=== PATIENT | male | born 1960 | race Caucasian/White ===

== ENCOUNTER 2023-09-03 17:14 | Observation (INO) | payer OTHER, SELFPAY ==
[2023-09-03] VITALS (36 sets, daily range): BP systolic 125–181; BP diastolic 75–110; PULSE 73–114; RESP 12–24; TEMP 36.4–36.8; O2SAT 93–97; BMI 23.7; BMI 23.0
--- NOTE | 2023-09-03 17:29 | ECG_ITS ---
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
--- NOTE | 2023-09-03 17:29 | XR_ITS ---
The [address] [address] Patient Name: STEPHANI MONTANA MRN: [id number] date: 1960 Sex: M Assigned Patient Location: ER Current Patient Location: ED.MAIN Accession/Order Number: [id number] Exam Date: 09/03/2023 17:35 Report Date: 09/03/2023 18:22 At the request of: JACQUELIN CONSTANTINO Procedure: XR chest 1V EXAM: XR chest 1V HISTORY: chest pain COMPARISON: None. TECHNIQUE: Chest X-ray AP, 1 view FINDINGS: Support devices: None. Lungs/pleura: No consolidation, effusion, or pneumothorax. Heart and mediastinum: Normal contours. Bones: No acute abnormality identified. XR/XR chest 1V Impression: No radiographic evidence of acute cardiopulmonary process. Electronically authenticated by: CHARLEY BABROSA Date: 09/03/2023 18:22
--- NOTE | 2023-09-03 17:35 | ED_ITS ---
HPI - General Adult General Chief complaint: Chest Pain Stated complaint: Palpitations Time Seen by Provider: 09/03/23 17:23 Source: patient Mode of arrival: walk-in Limitations: no limitations History of Present Illness HPI narrative: 62-year-old male presents from home with concerns of palpitations, chest discomfort. patient states he is not experiencing pain. But has noticed some funny feelings in his chest over the past several months, patient states if he is distracted he is not aware of it, but otherwise notes a palpitations sensation and heaviness with exertion.patient states he was working at home yesterday and had to stop to take a break. He denies any nausea or radiation of symptoms into his neck or arm. States he had slight heaviness in his back. Patient states he fell asleep in his chair last night and did not come to the Emergency Room. He has a twin brother who had a heart attack five or seven years ago but otherwise does not have any known family history of heart disease. Patient states he does not drink alcohol or smoke tobacco. He appears in no distress but did take two full 324 mg aspirins at home prior to arrival. Onset (ago): day(s) Location: Reports chest Radiation: Reports non-radiation Severity: mild Quality: Reports other (heaviness/palpitation sensation like heart's beating too fast. ) Pain Consistency: Reports other (worse with exertion) Relieving factors: Reports movement Exacerbating factors: Reports rest Associated symptoms: Reports denies other symptoms Treatments prior to arrival: Reports none Related Data Home Medications Medication Instructions Recorded Confirmed No Known Home Medications 09/03/23 09/03/23 Allergies Allergy/AdvReac Type Severity Reaction Status Date / Time No Known Drug Allergies Allergy Verified 09/03/23 17:25 Review of Systems ROS Constitutional Denies: fever, chills or change in weight Eyes Denies: change in vision or blurry vision Ears, nose, mouth, and throat Denies: throat pain Cardiovascular Reports: chest pain and palpitations; Denies: edema, swelling of feet/ankles or shortness of breath when lying down Respiratory Denies: shortness of breath or cough Gastrointestinal Denies: abdominal pain, nausea or vomiting Genitourinary Denies: painful urination Musculoskeletal Denies: back pain, neck pain or extremity pain Integumentary/Breast Denies: rash Neurological Denies: headache Psychiatric Denies: anxiety Endocrine Denies: excessive urination Allergic/Immunologic Denies: hives [facility] Medical History (Updated 09/03/23 @ 20:43 by FRANKO Lazar) No active medical problems Exam Narrative Exam Narrative: Nurses notes and vital signs reviewed and patient is not hypoxic. General: The patient appears well and in no apparent distress. Patient is resting comfortably on cart. Skin: Warm, dry, no pallor noted. Head: Normocephalic, atraumatic Neck: Supple, trachea mid-line, no tenderness, no lymphadenopathy Eye: Pupils are equal, round and reactive to light, EOMI Ears, Nose, Mouth, and Throat: TM are clear, normal light reflex, oral mucosa is moist, no posterior oropharynx erythema or hypertrophy, uvula is mid-line Cardiovascular: Regular Rate and Rhythm, no prominent murmur Respiratory: Patient is in no distress, no accessory muscle use, lungs are clear to auscultation, no wheezing, rales or rhonchi. Chest Wall: no tenderness, no reproducible discomfort on palpation Back: non-tender, no CVA tenderness Musculoskeletal: normal ROM, no tenderness, no swelling GI: Normal bowel sounds, no tenderness to palpation, no masses appreciated. No rebound, guarding, or rigidity noted. Neurological: A&O x4 Psychiatric: Cooperative Constitutional Vital Signs, click to edit/add: Last Vital Signs Temp 97.5 F L 09/03/23 17:23 Pulse 76 09/03/23 20:20 Resp 17 09/03/23 20:20 BP 134/79 09/03/23 20:15 Pulse Ox 94 L 09/03/23 19:10 O2 Del Method Room Air 09/03/23 17:23 Course Vital Signs Vital signs: Vital Signs Blood Pressure 181/110 H 09/03/23 17:20 Temperature 97.5 F L 09/03/23 17:23 Pulse Rate 76 09/03/23 20:20 Respiratory Rate 17 09/03/23 20:20 Blood Pressure 134/79 09/03/23 20:15 Pulse Oximetry 94 L 09/03/23 19:10 Oxygen Delivery Method Room Air 09/03/23 17:23 Medical Decision Making MDM Narrative Medical decision making narrative: patient presents with concerns of palpitations, at times having this sensation in his chest. He denies any nausea or vomiting. He is without shortness of breath. Patient notes symptoms gave him pause yesterday while working at home. Fell asleep in his chair and presents this afternoon with concerns of symptoms not relieving. Patient took two full aspirins at home prior to arrival, he'll be given nitroglycerin here 0.4 mg given his elevated blood pressure. EKG reviewed. patient had notable improvement in his blood pressure after oral nitroglycerin. Later reassessed by nursing staff and reported no discomfort. In his chest. Patient had nitroglycerin paste applied, repeat vitals 136/82, heart rate is 80 bpms, I was notified by lab that the initial lab draw was hemolyzed and will be repeated. Given the length of his symptoms and likely need for observation and will recheck a troponin prior to admission. repeat troponin within normal limits. Patient reevaluated, asymptomatic since nitroglycerin paste applied, agreeable to stay for chest pain. We discussed indications. Patient with no further concerns, case reviewed with Hospitalist Angela STEWARD/STEWARDESS [employer]IEF [employer]GO VESSEL: will admit med surg obs Lab Data Lab results reviewed: Yes I reviewed the patient's lab results Labs: Lab Results 09/03/23 09/03/23 09/03/23 Range/Units 17:30 18:25 19:38 WBC 10.0 (4.0-11.0) 10^3/uL RBC 4.89 (4.70-6.10) 10^6/uL Hgb 15.0 (14.0-18.0) g/dL Hct 43.8 (42.0-54.0) % MCV 89.6 (80.0-94.0) fL MCH 30.7 (25.9-34.0) pg MCHC 34.2 (29.9-35.2) g/dL RDW 12.7 (11.0-15.0) % Plt Count 246 (150-450) 10^3/uL MPV 11.6 (9.5-13.5) fL Neut % (Auto) 62.5 (43.0-75.0) % Lymph % (Auto) 28.4 (20.5-60.0) % [place] % (Auto) 8.0 (1.7-12.0) % Eos % (Auto) 0.4 L (0.9-7.0) % Baso % (Auto) 0.5 (0.2-2.0) % Neut # (Auto) 6.2 (1.4-6.5) 10^3/uL Lymph # (Auto) 2.8 (1.2-3.8) 10^3/uL [place] # (Auto) 0.8 (0.3-0.8) 10^3/uL Eos # (Auto) 0.0 (0.0-0.7) 10^3/uL Baso # (Auto) 0.1 (0.0-0.1) 10^3/uL Abs Immat Gran (auto) 0.02 (0.00-0.03) 10^3/uL Imm/Tot Granulo (auto) 0.2 (0.0-0.5) % PT 10.9 (9.0-11.6) sec INR 1.03 APTT 28.3 (22.3-36.2) sec Sodium 139 (136-145) mmol/L Potassium 3.4 L (3.5-5.1) mmol/L Chloride 104 (98-107) mmol/L Carbon Dioxide 25.2 (21.0-32.0) mmol/L Anion Gap 13.2 BUN 13.0 (7.0-18.0) mg/dL Creatinine 0.95 (0.70-1.30) mg/dL Est GFR ( Amer) >60 (>=60) Est GFR (Non-Af Amer) >60 (>=60) BUN/Creatinine Ratio 13.7 Glucose 121 H (74-106) mg/dL Calcium 8.3 L (8.5-10.1) mg/dL Total Bilirubin 0.7 (0.2-1.0) mg/dL AST 12 L (15-37) U/L ALT 20 (16-63) U/L Alkaline Phosphatase 58 (46-116) U/L Troponin I High Sens 5.6 6.5 (4.0-76.1) pg/mL Total Protein 6.5 (6.4-8.2) g/dL Albumin 3.7 (3.4-5.0) g/dL Globulin 2.8 g/dL Albumin/Globulin Ratio 1.3 Lipase 20.0 (16.0-77.0) U/L TSH & Free T4 Interp 2.761 (0.358-3.740) uIU/mL Urine Color (YELLOW) Urine Clarity (CLEAR) Urine pH (5.0-9.0) Ur Specific [place] (1.005-1.025) Urine Protein (NEG/TRACE) mg/dL Urine Glucose (UA) (NEGATIVE) mg/dL Urine Ketones (NEGATIVE) mg/dL Urine Occult Blood (NEGATIVE) Urine Nitrite (NEGATIVE) Urine Bilirubin (NEGATIVE) Urine Urobilinogen (0.2-1.0) EU/dL Ur Leukocyte Esterase (NEGATIVE) 09/03/23 Range/Units 19:56 WBC (4.0-11.0) 10^3/uL RBC (4.70-6.10) 10^6/uL Hgb (14.0-18.0) g/dL Hct (42.0-54.0) % MCV (80.0-94.0) fL MCH (25.9-34.0) pg MCHC (29.9-35.2) g/dL RDW (11.0-15.0) % Plt Count (150-450) 10^3/uL MPV (9.5-13.5) fL Neut % (Auto) (43.0-75.0) % Lymph % (Auto) (20.5-60.0) % [place] % (Auto) (1.7-12.0) % Eos % (Auto) (0.9-7.0) % Baso % (Auto) (0.2-2.0) % Neut # (Auto) (1.4-6.5) 10^3/uL Lymph # (Auto) (1.2-3.8) 10^3/uL [place] # (Auto) (0.3-0.8) 10^3/uL Eos # (Auto) (0.0-0.7) 10^3/uL Baso # (Auto) (0.0-0.1) 10^3/uL Abs Immat Gran (auto) (0.00-0.03) 10^3/uL Imm/Tot Granulo (auto) (0.0-0.5) % PT (9.0-11.6) sec INR APTT (22.3-36.2) sec Sodium (136-145) mmol/L Potassium (3.5-5.1) mmol/L Chloride (98-107) mmol/L Carbon Dioxide (21.0-32.0) mmol/L Anion Gap BUN (7.0-18.0) mg/dL Creatinine (0.70-1.30) mg/dL Est GFR ( Amer) (>=60) Est GFR (Non-Af Amer) (>=60) BUN/Creatinine Ratio Glucose (74-106) mg/dL Calcium (8.5-10.1) mg/dL Total Bilirubin (0.2-1.0) mg/dL AST (15-37) U/L ALT (16-63) U/L Alkaline Phosphatase (46-116) U/L Troponin I High Sens (4.0-76.1) pg/mL Total Protein (6.4-8.2) g/dL Albumin (3.4-5.0) g/dL Globulin g/dL Albumin/Globulin Ratio Lipase (16.0-77.0) U/L TSH & Free T4 Interp (0.358-3.740) uIU/mL Urine Color Yellow (YELLOW) Urine Clarity Clear (CLEAR) Urine pH 5.5 (5.0-9.0) Ur Specific [place] >=1.030 A (1.005-1.025) Urine Protein Negative (NEG/TRACE) mg/dL Urine Glucose (UA) Negative (NEGATIVE) mg/dL Urine Ketones Trace A (NEGATIVE) mg/dL Urine Occult Blood Negative (NEGATIVE) Urine Nitrite Negative (NEGATIVE) Urine Bilirubin Negative (NEGATIVE) Urine Urobilinogen 0.2 (0.2-1.0) EU/dL Ur Leukocyte Esterase Negative (NEGATIVE) Imaging Data Chest x-ray: Attestation: I personally reviewed and interpreted this imaging study as follows: Radiologist's impression: ITS Impressions Chest X-Ray 09/03/23 17:29 Impression: No radiographic evidence of acute cardiopulmonary process. Electronically authenticated by: CHARLEY BARBOSA Date: 09/03/2023 18:22 ECG Data Attestation: I personally reviewed and interpreted this ECG as follows: Interpretation: EKG interpretation: Emergency Department physician interpretation,99 normal sinus rhythm, no ectopy, no ST segment elevation, normal axis. Discharge Plan Discharge Chief Complaint: Chest Pain Clinical Impression: Chest pain Patient Disposition: Admitted as Observation Time of Disposition Decision: :42 Condition: Good Prescriptions / Home Meds: No Action No Known Home Medications Stand Alone Forms: Portal Instructions Referrals: Physician,Non-Staff, MD [Primary Care Provider] - 1 week
[2023-09-03] MEDS: NITROGLYCERIN 0.4 MG BOTTLE PO (17:40)
[2023-09-03 18:06] LABS: Basophils Absolute Auto 0.1 10^3/uL (0.0-0.1); Basophils Percent Auto 0.5 % (0.2-2.0); Eosinophils Percent Auto 0.4 % (0.9-7.0); Hematocrit 43.8 % (42.0-54.0); Immature Granulocytes Abs Auto 0.02 10^3/uL (0.00-0.03); Immature Granulocytes Pct Auto 0.2 % (0.0-0.5); Lymphocytes Absolute Auto 2.8 10^3/uL (1.2-3.8); Lymphocytes Percent Auto 28.4 % (20.5-60.0); Mean Corpuscular HGB Conc 34.2 g/dL (29.9-35.2); Mean Corpuscular Hemoglobin 30.7 pg (25.9-34.0); Mean Corpuscular Volume 89.6 fL (80.0-94.0); Mean Platelet Volume 11.6 fL (9.5-13.5); Monocytes Absolute Auto 0.8 10^3/uL (0.3-0.8); Neutrophils Absolute Auto 6.2 10^3/uL (1.4-6.5); Neutrophils Percent Auto 62.5 % (43.0-75.0); Platelet Count 246 10^3/uL (150-450); Red Blood Count 4.89 10^6/uL (4.70-6.10); Red Cell Distribution Width 12.7 % (11.0-15.0)
[2023-09-03] MEDS: NITROGLYCERIN 0.1 MG/HR PATCH.TD24 1 EACH TD (18:37)
[2023-09-03 18:46] LABS: INR 1.03; Partial Thromboplastin Time 28.3 sec (22.3-36.2); Prothrombin Time 10.9 sec (9.0-11.6)
[2023-09-03 18:49] LABS: Alanine Aminotransferase 20 U/L (16-63); Albumin Globulin Ratio 1.3; Albumin Level 3.7 g/dL (3.4-5.0); Alkaline Phosphatase 58 U/L (46-116); Anion Gap 13.2; Aspartate Amino Transferase 12 U/L (15-37); BUN Creatinine Ratio 13.7; Bilirubin Total 0.7 mg/dL (0.2-1.0); Calcium 8.3 mg/dL (8.5-10.1); Carbon Dioxide 25.2 mmol/L (21.0-32.0); Chloride 104 mmol/L (98-107); Estimated GFR (African America >60 (>=60); Estimated GFR (Non-African Ame >60 (>=60); Globulin 2.8 g/dL; Glucose 121 mg/dL (74-106); Potassium 3.4 mmol/L (3.5-5.1); Sodium 139 mmol/L (136-145); Total Protein 6.5 g/dL (6.4-8.2)
[2023-09-03 18:54] LABS: TSH W/ REFLEX FT4 2.761 uIU/mL (0.358-3.740); Troponin I High Sensitivity 5.6 pg/mL (4.0-76.1)
[2023-09-03 20:12] LABS: Troponin I High Sensitivity 6.5 pg/mL (4.0-76.1)
[2023-09-03 20:14] LABS: Bilirubin Urine NEGATIVE (NEGATIVE); Blood Urine NEGATIVE (NEGATIVE); Clarity Urine CLEAR (CLEAR); Color Urine YELLOW (YELLOW); Glucose Urine UA NEGATIVE (NEGATIVE); Ketones Urine TRACE mg/dL (NEGATIVE); Leukocyte Esterase Urine NEGATIVE (NEGATIVE); Nitrite Urine NEGATIVE (NEGATIVE); Protein Urine NEGATIVE (NEG/TRACE); Specific Gravity Urine >=1.030 (1.005-1.025); Urobilinogen Urine 0.2 EU/dL (0.2-1.0); pH Urine 5.5 (5.0-9.0)
[2023-09-03 20:17] LABS: Urine Microscopic Indicated NO
[2023-09-04] VITALS (11 sets, daily range): BP systolic 124–152; BP diastolic 74–88; PULSE 70–92; O2SAT 95–96
[2023-09-04] MEDS: ASPIRIN 81 MG TABLET.DR PO ×2 (00:08→09:46)
[2023-09-04] MEDS: POTASSIUM CHLORIDE 10 MEQ ER TABLET 20 MEQ PO (00:08)
--- NOTE | 2023-09-04 04:00 | ECG_ITS ---
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
[2023-09-04 05:15] LABS: Basophils Absolute Auto 0.1 10^3/uL (0.0-0.1); Basophils Percent Auto 0.8 % (0.2-2.0); Eosinophils Absolute Auto 0.1 10^3/uL (0.0-0.7); Eosinophils Percent Auto 0.8 % (0.9-7.0); Hematocrit 40.8 % (42.0-54.0); Hemoglobin 13.5 g/dL (14.0-18.0); Immature Granulocytes Abs Auto 0.02 10^3/uL (0.00-0.03); Immature Granulocytes Pct Auto 0.3 % (0.0-0.5); Lymphocytes Absolute Auto 1.9 10^3/uL (1.2-3.8); Lymphocytes Percent Auto 24.2 % (20.5-60.0); Mean Corpuscular HGB Conc 33.1 g/dL (29.9-35.2); Mean Corpuscular Hemoglobin 30.2 pg (25.9-34.0); Mean Corpuscular Volume 91.3 fL (80.0-94.0); Mean Platelet Volume 10.1 fL (9.5-13.5); Monocytes Absolute Auto 0.6 10^3/uL (0.3-0.8); Monocytes Percent Auto 8.1 % (1.7-12.0); Neutrophils Absolute Auto 5.1 10^3/uL (1.4-6.5); Neutrophils Percent Auto 65.8 % (43.0-75.0); Platelet Count 243 10^3/uL (150-450); Red Blood Count 4.47 10^6/uL (4.70-6.10); Red Cell Distribution Width 12.7 % (11.0-15.0); White Blood Count 7.7 10^3/uL (4.0-11.0)
[2023-09-04 05:42] LABS: Troponin I High Sensitivity 10.2 pg/mL (4.0-76.1)
[2023-09-04 05:44] LABS: Alanine Aminotransferase 18 U/L (16-63); Albumin Globulin Ratio 1.3; Albumin Level 3.4 g/dL (3.4-5.0); Alkaline Phosphatase 54 U/L (46-116); Anion Gap 10.2; Aspartate Amino Transferase 14 U/L (15-37); BUN Creatinine Ratio 16.8; Bilirubin Total 0.4 mg/dL (0.2-1.0); Calcium 8.4 mg/dL (8.5-10.1); Carbon Dioxide 29.7 mmol/L (21.0-32.0); Chloride 106 mmol/L (98-107); Chol HDL Ratio 3.6; Cholesterol 135 mg/dL (<=200); Estimated GFR (African America >60 (>=60); Estimated GFR (Non-African Ame >60 (>=60); Globulin 2.6 g/dL; Glucose 90 mg/dL (74-106); HDL Cholesterol 38 mg/dL (40-60); Potassium 3.9 mmol/L (3.5-5.1); Sodium 142 mmol/L (136-145); Triglycerides 46 mg/dL (<=150); VLDL CHOLESTEROL 9.2 mg/dL
[2023-09-04 05:46] LABS: Magnesium 2.3 mg/dL (1.8-2.4)
[2023-09-04 05:51] LABS: Estimated Average Glucose 123 mg/dL; Glycohemoglobin A1C 5.9 % (4.5-6.2)
--- NOTE | 2023-09-04 07:53 | CA_ITS ---
Patient Name: STEPHANI MONTANA MR#: [id number] : 1960 Exam Date: 09/04/2023 Ordering Doctor: KATHY BOSS ECHOCARDIOGRAM REPORT PROCEDURE: CA ECHO DOPPLER COMPLETE INDICATIONS: Chest pain, HTN urgency COMPARISON: None. DESCRIPTION: COMPLETE ECHOCARDIOGRAM Real-time transthoracic echocardiography with 2D, M-mode, spectral and color flow Doppler performed. QUALITY: Technical quality was good. 70 , 160#, BSA 1.9 m2 LEFT VENTRICLE: Normal in size. Normal left ventricular wall thickness. Normal systolic function. LV EF: Normal left ventricular ejection fraction, (>55%). DIASTOLIC: Normal diastolic function. ATRIAL SEPTUM: Visually appears intact. LEFT ATRIUM: Normal chamber size. RIGHT ATRIUM: Normal chamber size. RIGHT VENTRICLE: Normal chamber size. Normal right ventricular systolic function. TRICUSPID VALVE: Normal mobility and thickness. No stenosis with no regurgitation. MITRAL VALVE: Normal mobility and thickness. No evidence of mitral valve stenosis. Trivial mitral regurgitation. AORTIC VALVE: Normal trileaflet appearance. Thickened aortic valve. Normal leaflet mobility. No evidence of aortic valve stenosis. No aortic regurgitation. AORTIC ROOT: PULMONIC VALVE: Normal thickness and mobility. No stenosis. No regurgitation. PERICARDIUM: No evidence of pericardial effusion. IVC: Collapses with inspirations. IVC is normal in size. PLEURA: CONCLUSION: 1. Normal ventricular function. LVEF is 55 to 60%. 2. No significant valvular dysfunction. 3. No pericardial effusion. Adult Echocardiography Procedure Report Left Ventricle LVEDD (3.7 - 5.6 cm): 5.32 cm LVESD (2.2 - 4.0 cm): 4.37 cm LVIVS thickness (0.6 - 1.2 cm): 1.03 cm LVPW thickness (0.5 - 1.0 cm): 0.99 cm e': 0.13 m/s E - e': 2.73 LVOT Max Gradient: 3.47 mm[Hg] LVOT Area (cm2): 0.93 m/s Peak Velocity (LVOT): 0.93 m/s Mean Velocity (LVOT): 0.63 m/s LVOT Diameter 2.31 cm Left Atrium LA Volume Index (2D A2C): 29.10 ml/m2 Left Atrium Systolic Dimension: 3.62 cm Mitral Valve MV E to A Ratio: 0.72, 0.60 Mitral Valve A-Wave Peak Velocity: 0.54 m/s Mitral Valve E-Wave Peak Velocity: 0.36 m/s Right Ventricle Aorta AO Root Diam: 3.58 cm Aortic Valve AoV Area ([place]): 3.00 cm2, 3.00 cm2 AoV Area (VTI): 3.21 cm2, 3.21 cm2 Peak Velocity(Antegrade Flow): 1.30 m/s Peak Gradient(Antegrade Flow): 6.72 mm[Hg] Mean Velocity(Antegrade Flow): 0.92 m/s Mean Gradient(Antegrade Flow): 3.82 mm[Hg] Velocity Time Integral: 24.91 cm Tricuspid Valve Pulmonic Valve Peak Velocity: 1.16 m/s Peak Gradient: 5.38 mm[Hg] Right Atrium Right Atrium Systolic Pressure: 46.13 ml, 46.13 ml Dictated by: Joaquín Cherry M.D. on 09/05/2023 at 17:26 Approved by: Joaquín Cherry M.D. on 09/05/2023 at 17:30
--- NOTE | 2023-09-04 09:06 | P.HP_ITS ---
<Statement entered by Shaikh Nikhil MD - 09/04/23 13:29> This documentation has been reviewed and approved. Seen and examined. Admitted for poorly controlled HTN, palpitations and mild chest discomfort. Exam: Comfortable, NAD CTA bilaterally, normal RR Normal HR, no murmur Assessment and Plan: HTN Chest pain No evidence of active cardiac ischemia. Trop x 3 negative. BP is well controlled now. D/c on amlodipine. Monitor BP as outpatient and f/u with PCP H&P: HPI History of Present Illness Chief complaint: Palpitations Chest Pain Narrative: 09/04/23 0850 This is a 62-year-old male patient with a benign past medical history who presented to the ED complaining of abnormal chest sensation for the last several months, worsened in the last week. He reports greater than 6 months of new sensation of feeling his heartbeat in his chest. He denies chest pain, heaviness, pressure, squeezing, or palpitations. He is retired but has a very active lifestyle. Within the last 2 months he has noticed increased fatigue and is taking more naps. Within the last week the sensation of his heart beating and fatigue has been more noticeable and worrisome. He sometimes reports feeling jittery , but denies any history of anxiety or recent stressors. He presented to the ED last night as he was concerned for possible heart attack symptoms. His twin brother had a heart attack 6 or 7 years ago but he has no other family history of heart disease. Workup in the ED was relatively benign with mild hypokalemia (3.4), negative troponins x 2, mild hyperglycemia (121), with all other labs unremarkable. His blood pressure was markedly elevated on arrival to the ED (181/110). He was given nitroglycerin and his heartbeat sensation resolved and his blood pressure dropped. Chest x-ray showed no acute disease and an EKG revealed normal sinus rhythm without ectopy or ST changes. He was admitted to observation overnight for further cardiac workup including an echocardiogram. At the time of my exam the patient is sitting up in a bedside chair. He denies any sensation of his heart beating, palpitations, chest pain, pressure, or any other adverse symptoms. Serial cardiac enzymes x 3 have remained negative and EKGs remain unremarkable. A lipid panel and A1C were unremarkable this morning. A 2D echo will be obtained this morning to rule out wall motion or valvular abnormalities. We clinically suspect hypertensive urgency as the source of his symptoms and discharge is likely later this afternoon pending at least preliminary echo results. DISCHARGE: Preliminary 2D Echo appears unremarkable but final cardiology read is still pending. BP well controlled on amlodipine and pt is tolerating well. D/C home in stable condition w/ a prescription for amlodipine. Follow up w/ PCP in 3-5 days. 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 - Injury of ulnar nerve at forearm level, unspecified arm, initial encounter (ICD-10) No active medical problems Surgical History (Updated 09/03/23 @ 22:29 by Ana Santana RN) History of hernia surgery ?Z98.890 - Other specified postprocedural states (ICD-10) ?Z87.19 - Personal history of other diseases of the digestive system (ICD-10) Family History (Updated 09/03/23 @ 22:31 by Ana Santana RN) Father Family history of cancer Mother Family history of stroke Social History (Updated 09/03/23 @ 22:36 by Ana Santana RN) Within the past year, how often did you have a drink containing alcohol: monthly or less Within the past year, how many standard drinks containing alcohol did you have on a typical day: 1 or 2 Within the past year, how often did you have six or more drinks on one occasion: never Total score: 0 Score interpretation: A score less than 4 is consistent with normal alcohol consumption. 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 Known occupational exposures/hazards: No Highest level of school completed/degree received: Associate degree: occupational, technical, vocational program Are you now , , , , never or living with a partner: In a typical week, how many times do you talk on the telephone with family, friends, or neighbors: never How often do you get together with friends or relatives: once per week How often do you attend gnosticist or samaritan services: never Do you belong to any clubs or organizations such as gnosticist groups unions, [employer] or athletic groups, or school groups: no Total score: 0 Score interpretation: A score of less than or equal to 1 indicates the most socially isolated. Little interest or pleasure in doing things: not at all Feeling down, depressed, or hopeless: not at all Feel stressed/tense/nervous/anxious/difficulty sleeping: not at all Life stressors: recent of family or friend Life stressor details: of mom 2021 Do you think of yourself as: straight/heterosexual Gender Identity: male Meds Home Medications and Allergies Home Medications Medication Instructions Recorded Confirmed Type amlodipine 5 mg tablet 5 mg PO DAILY #30 tabs 09/04/23 Rx Allergies Allergy/AdvReac Type Severity Reaction Status Date / Time No Known Drug Allergies Allergy Verified 09/03/23 17:25 Exam Constitutional Vital Signs, click to edit/add: Last Vital Signs Temp 98.3 F 09/03/23 21:35 Pulse 78 09/04/23 08:08 Resp 18 09/03/23 21:35 BP 144/88 H 09/03/23 22:00 Pulse Ox 96 09/04/23 04:30 O2 Del Method Room Air 09/04/23 04:30 Common normals: no apparent distress, oriented x3, alert and well nourished General appearance: cooperative Orientation/consciousness: Yes awake HENMT Common normals: normocephalic, head/scalp atraumatic, hearing grossly normal bilaterally, external nose normal and moist oral mucous membranes Eye Common normals: PERRL, EOMs intact bilaterally, conjunctivae normal and no scleral icterus Alignment: alignment normal Eyelid: eyelids normal Neck & C-Spine Common normals: full ROM, supple and no JVD Chest Common normals: inspection of chest normal Chest: symmetrical chest wall rise Respiratory Common normals: normal respiratory effort, no retractions, no use of accessory muscles and clear to auscultation bilaterally Effort & inspection: able to speak in complete sentences Cardio Common normals: no JVD, regular rate, regular rhythm, S1 normal heart sound, S2 normal heart sound, no gallops, no clicks, no murmurs, no rub and peripheral pulses 2+ throughout GI Common normals: Normal to inspection, nondistended, normoactive bowel sounds present, soft to palpation, non-tender, no hepatosplenomegaly, no masses and no bruits Bladder/kidney exam: bladder normal to palpation Back & Pelvis Common normals: thoracic and lumbar spine normal to inspection Extremity Common normals: normal capillary refill and no pedal edema General: normal exam except as noted; no clubbing and no cyanosis Neuro Minh Coma Scale: GCS not evaluated Common normals: CN's II-XII intact bilaterally, moves all extremities, no focal motor deficits and no sensory deficits noted Speech: speech normal Motor exam: strength 5/5 throughout Psych Common normals: mental status grossly normal, thought process normal, affect normal and activity/motor behavior normal Results Labs Labs: Short CBC 09/03/23 09/04/23 Range/Units 17:30 04:19 WBC 10.0 7.7 (4.0-11.0) 10^3/uL Hgb 15.0 13.5 L (14.0-18.0) g/dL Hct 43.8 40.8 L (42.0-54.0) % Plt Count 246 243 (150-450) 10^3/uL BMP 09/03/23 09/04/23 18:25 04:19 Sodium 139 142 Potassium 3.4 L 3.9 Chloride 104 106 Carbon Dioxide 25.2 29.7 BUN 13.0 16.0 Creatinine 0.95 0.95 Glucose 121 H 90 Calcium 8.3 L 8.4 L Liver Function 09/03/23 09/04/23 Range/Units 18:25 04:19 Total Bilirubin 0.7 0.4 (0.2-1.0) mg/dL AST 12 L 14 L (15-37) U/L ALT 20 18 (16-63) U/L Alkaline Phosphatase 58 54 (46-116) U/L Albumin 3.7 3.4 (3.4-5.0) g/dL Urine 09/03/23 Range/Units 19:56 Urine Color Yellow (YELLOW) Urine Clarity Clear (CLEAR) Urine pH 5.5 (5.0-9.0) Ur Specific [place] >=1.030 A (1.005-1.025) Urine Protein Negative (NEG/TRACE) mg/dL Urine Glucose (UA) Negative (NEGATIVE) mg/dL Pulse Oximetry Attestation: I have reviewed the pertinent pulse oximetry results. ECG Interpretation: EKG #1 09/03/2023 1721 Sinus rhythm Short SC interval Abnormal ECG No previous ECG available for comparison EKG # 09/04/2023 0434 Sinus rhythm Compared to ECG 09/03/2023 1721 Short SC interval no longer present Imaging Chest x-ray: Attestation: I have reviewed the pertinent imaging results. Radiologist's impression: Impression: No radiographic evidence of acute cardiopulmonary process. Assessment and Plan Assessment and Plan (1) Chest pain: Assessment and Plan: ACUTE * Adm observation overnight (09/03/23 2200) * Atypical CP - mostly noticeable sensation of heartbeats w/o pain, pressure, heaviness, SOB, palpitations * Serial Gonzalo and EKGs unremarkable * 2D Echo today to assess for valvular or WM abnormalities * Plan D/C later today unless significant Echo finding is noted. (2) Hypertensive urgency: Assessment and Plan: ACUTE * BP markedly elevated at 181/110 on arrival to ED * Heartbeat sensation resolved after NTG was applied and BP dropped * D/C NTG patch today * Start amlodipine 5mg daily * Follow up w/ new PCP, Dr Maisha Pool, for BP management
[2023-09-04] MEDS: AMLODIPINE BESYLATE 5 MG TABLET PO (09:46)
--- NOTE | 2023-09-04 10:43 | CM.NOTE ---
Rounds made with Dr. Tejeda, pt will get echo today and possible discharge this afternoon. Pt will discharge on new BP medication. Pt verbalizes understanding.
[2023-09-04] MEDS: FLU VACC QS 23-24(6MS UP)CEL/PF 60 MCG/0.5 ML SYRINGE IM (13:55)
--- NOTE | 2023-09-05 12:23 | CM.DCFOLLOWU ---
Person spoke with: patient How are you feeling? better, had chest pain last night and felt his blood pressure was increasing so he took medication How is your pain? better Did you understand your discharge instructions? yes Do you have any questions about your discharge instructions? no Were you given any prescriptions at discharge? yes Were you able to get your prescriptions filled? yes Do you understand how to take your medications as ordered? yes Do you have any questions about your follow up appointment and do you plan to keep your follow up appointment? follow up on Is there anything else that you would like to discuss? no, advised to return to ED if having chest pain Questions/Comments/Concerns/Other:
== END 2023-09-04 13:59 | disposition home or self-care (01) ==
LOC: ER 20:43 → MS 21:24
PROVIDERS: Personal Emergency Response Attendant; Registered Nurse; Admitting Provider Internal Medicine; Emergency Provider Emergency Medicine; Visit Provider Internal Medicine
DX: R07.9 Chest pain, unspecified (principal); I16.0 Hypertensive urgency; Z98.890 Other specified postprocedural states; Z87.19 Personal history of other diseases of the digestive system; Z79.899 Other long term (current) drug therapy; Z23 Encounter for immunization
CPT/HCPCS: 36415; 71045; 80053; 80061; 81003; 83036; 83690; 83735; 83880; 84443; 84484; 85025; 85610; 85730; 90674; 93005; 93306; 94761; 99285; G0008; G0378